=== PATIENT | male | born 1960 | race Two or more races ===

== ENCOUNTER 2022-11-06 06:18 | Inpatient (IN) | payer BC ==
[2022-11-06] VITALS (14 sets, daily range): BP systolic 118–130; BP diastolic 49–82
[~2022-11-06] VITALS: Ht 177.8 cm; Wt 141.6 kg
[2022-11-06] MEDS: ceFAZolin 1GM/50ML 50 ML IV SCH ×2 (03:15→19:15)
[~2022-11-06 06:18] MED LIST: EMPA1TAB PO; GABA-1250 PO; GLYB5TAB8 PO; HYDR25TA4 PO; METF-370 PO; OLME20TA53 PO; ROSU10TA16 PO
[2022-11-06] MEDS ORDERED: ceFAZolin 1GM/50ML 100 ML IV ONE (06:37)
[2022-11-06] MEDS ORDERED: SUCCINYLCHOLINE CHLORIDE 20 MG/ML 10ML VIAL IV ONE (07:22)
[2022-11-06] MEDS ORDERED: HYDROmorphone HCL 2 MG/ML VL/or syr ONE (07:34)
[2022-11-06] MEDS ORDERED: fentaNYL CITRATE 100 MCG/2 ML VL ONE (07:34)
[2022-11-06] MEDS ORDERED: MIDAZOLAM HCL 2MG/2ML 2ml VIAL (1mg/ml) ONE (07:34)
[2022-11-06] MEDS ORDERED: PROPOFOL 10 MG/ML 20 ML IV ONE (08:51)
[2022-11-06] MEDS ORDERED: MINERAL OIL TOPICAL 10ml TOP ONE (09:58)
[2022-11-06] MEDS ORDERED: SUGAMMADEX 200mg/2ml Vial (100MG/ML) IV ONE (11:11)
[2022-11-06] MEDS ORDERED: D5W/SOD CHLO 0.9% 1,000 ML IV SCH (11:15)
[2022-11-06] MEDS ORDERED: NITROGLYCERIN 0.4 MG SL TAB SL PRN (11:15)
[2022-11-06] MEDS ORDERED: ONDANSETRON HCL 4 MG/2 ML VIAL IV PRN (11:15)
[2022-11-06] MEDS ORDERED: MORPHINE SULFATE INJ 2 MG/ml SYRG IV PRN ×2 (11:15)
[2022-11-06] MEDS ORDERED: ACETAMINOPHEN 325 MG TAB PO PRN (11:15)
[2022-11-06] MEDS: CYCLOBENZAPRINE HCL 10 MG TAB PO SCH ×2 (14:00→22:36)
[2022-11-06] MEDS: HYDROcodone-ACET 10/325MG TAB PO PRN (15:19)
[2022-11-06] MEDS ORDERED: HYDR25TA5 PO (17:37)
[2022-11-06] MEDS ORDERED: ROSU10TA64 PO (17:37)
[2022-11-06] MEDS ORDERED: EMPA1TAB3 PO (17:37)
[2022-11-06] MEDS ORDERED: OLME1TAB73 PO (17:37)
[2022-11-06] MEDS ORDERED: SILD100T57 PO (17:37)
[2022-11-06] MEDS ORDERED: METF-372 PO (17:37)
[2022-11-06] MEDS ORDERED: GABA-339 PO (17:37)
[2022-11-06] MEDS ORDERED: DEXTROSE (50%) 50ML SYRG IV PRN (18:15)
[2022-11-06] MEDS: ACCU-CHEK COMFORT CURVE STRIP VI SCH (22:00)
[2022-11-06] MEDS: InsuLIN REG 1unit/0.01ml Soln (100units/ml) SC SCH (22:00)
[2022-11-06] MEDS: DOCUSATE SOD 100 MG CAP PO SCH (22:36)
[2022-11-06] MEDS: GABAPENTIN 400 MG CAP PO SCH (22:36)
[2022-11-07] VITALS (18 sets, daily range): BP systolic 103–133; BP diastolic 54–98
[2022-11-07] MEDS: HYDROcodone-ACET 10/325MG TAB PO PRN ×3 (00:35→20:21)
[2022-11-07] MEDS ORDERED: ceFAZolin 1GM/50ML 50 ML IV ONE (02:18)
[2022-11-07 05:48] LABS: Basophils # (auto) 0 10 ^3/uL (0-0.2); Basophils % (auto) 0.1 % (0.0-2.0); Eosinophils # (auto) 0 10 ^3/uL (0-0.8); Eosinophils % (auto) 0.1 % (0.0-7.0); Hematocrit 40.2 % (41.0-53.0); Hemoglobin 13.3 g/dL (13.5-17.5); Lymphocytes % (auto) 7.8 % (10.0-50.0); Mean Corpuscular Volume 84.9 fL (80.0-100.0); Monocytes # (auto) 1.1 10 ^3/uL (0-1.3); Monocytes % (auto) 8.8 % (0.0-12.0); Neutrophils # (auto) 10.7 10 ^3/uL (1.6-8.6); Neutrophils % (auto) 83.2 % (37.0-80.0); Nucleated Red Blood Cells % 0.1 %; Red Blood Cells 4.74 10^6/uL (4.5-5.90); Red Cell Distribution Width 14.1 % (11.8-14.3); White Blood Cell 12.9 10^3/uL (4.4-10.8)
[2022-11-07 06:03] LABS: Potassium 4.4 mmol/L (3.5-5.1)
[2022-11-07] MEDS: ACCU-CHEK COMFORT CURVE STRIP VI SCH ×4 (06:09→22:18)
[2022-11-07] MEDS: CYCLOBENZAPRINE HCL 10 MG TAB PO SCH ×3 (06:09→22:08)
[2022-11-07 06:11] LABS: Albumin 3.4 g/dL (3.4-5.0); BUN/Creatinine Ratio 23.2 (10.0-20.0); Bilirubin, Total 0.5 mg/dL (0.2-1.0); Calcium 7.9 mg/dL (8.5-10.1); Total Protein 6.6 g/dL (6.4-8.2)
[2022-11-07] MEDS: InsuLIN REG 1unit/0.01ml Soln (100units/ml) SC SCH ×4 (06:12→22:16)
[2022-11-07] MEDS: GABAPENTIN 400 MG CAP PO SCH ×2 (09:38→22:08)
[2022-11-07] MEDS: DOCUSATE SOD 100 MG CAP PO SCH ×2 (09:42→22:08)
[2022-11-07] MEDS ORDERED: LOSARTAN POTASSIUM 50 MG TAB PO SCH (10:00)
[2022-11-07] MEDS ORDERED: HCTZ 25 MG TAB PO SCH (10:00)
[2022-11-07] MEDS: EMPAGLIFLOZIN 10 MG TAB PO SCH (13:12)
[2022-11-08] MEDS: HYDROcodone-ACET 10/325MG TAB PO PRN (02:48)
[2022-11-08 03:02] LABS: Urine Bacteria NONE SEEN /hpf (None Seen); Urine Blood Negative /uL (Negative); Urine WBC 1 /hpf (0 - 3)
[2022-11-08 05:00] VITALS: BP 108/75
[2022-11-08] MEDS: CYCLOBENZAPRINE HCL 10 MG TAB PO SCH (06:00)
[2022-11-08] MEDS: ACCU-CHEK COMFORT CURVE STRIP VI SCH ×2 (06:03→11:26)
[2022-11-08] MEDS: InsuLIN REG 1unit/0.01ml Soln (100units/ml) SC SCH ×2 (06:07→11:28)
[2022-11-08 06:22] LABS: Basophils # (auto) 0 10 ^3/uL (0-0.2); Basophils % (auto) 0.4 % (0.0-2.0); Eosinophils # (auto) 0.4 10 ^3/uL (0-0.8); Eosinophils % (auto) 3.4 % (0.0-7.0); Hematocrit 41.6 % (41.0-53.0); Hemoglobin 13.8 g/dL (13.5-17.5); Lymphocytes # (auto) 2.1 10 ^3/uL (0.4-5.4); Lymphocytes % (auto) 19.3 % (10.0-50.0); Mean Corpuscular Hemoglobin 28.3 pg (28.0-32.0); Mean Corpuscular Hgb Conc. 33.2 g/dL (32.0-36.0); Mean Corpuscular Volume 85.3 fL (80.0-100.0); Monocytes # (auto) 1.3 10 ^3/uL (0-1.3); Neutrophils # (auto) 7.1 10 ^3/uL (1.6-8.6); Neutrophils % (auto) 64.9 % (37.0-80.0); Nucleated Red Blood Cells % 0.1 %; Red Blood Cells 4.88 10^6/uL (4.5-5.90); Red Cell Distribution Width 14.3 % (11.8-14.3); White Blood Cell 10.9 10^3/uL (4.4-10.8)
[2022-11-08 06:46] LABS: Calcium 8.7 mg/dL (8.5-10.1); Potassium 4.4 mmol/L (3.5-5.1)
[2022-11-08 09:08] VITALS: BP 90/52
[2022-11-08] MEDS: DOCUSATE SOD 100 MG CAP PO SCH (09:44)
[2022-11-08] MEDS: EMPAGLIFLOZIN 10 MG TAB PO SCH (09:44)
[2022-11-08] MEDS: GABAPENTIN 400 MG CAP PO SCH (09:44)
[2022-11-08 12:37] VITALS: BP 107/72
[2022-11-08 14:19] VITALS: BP 96/63
== END 2022-11-08 15:00 | disposition home health service (06) | DRG 460 ==
LOC: SUR 06:18 → TELE 11:21 → DOU IN ICU 13:35 → TELE-WESTW 11-07 16:11
PROVIDERS: ADMIT Orthopaedic Surgery; ATTEND Internal Medicine
PROC: 0SG00AJ Fusion of Lumbar Vertebral Joint with Interbody Fusion Device, Posterior Approach, Anterior Column, Open Approach (ICD-10-PCS; principal; 2022-11-08)
PROC: 01NB0ZZ Release Lumbar Nerve, Open Approach (ICD-10-PCS; 2022-11-08)
PROC: 00NY0ZZ Release Lumbar Spinal Cord, Open Approach (ICD-10-PCS; 2022-11-08)
PROC: 4A11X4G Monitoring of Peripheral Nervous Electrical Activity, Intraoperative, External Approach (ICD-10-PCS; 2022-11-08)
DX: M48.062 Spinal stenosis, lumbar region with neurogenic claudication (principal); Z68.41 Body mass index [BMI] 40.0-44.9, adult; E11.9 Type 2 diabetes mellitus without complications; E66.01 Morbid (severe) obesity due to excess calories; E78.5 Hyperlipidemia, unspecified; I10 Essential (primary) hypertension; M51.36 Other intervertebral disc degeneration, lumbar region
CPT/HCPCS: 36415; 72100; 76000; 80048; 80053; 81001; 82962; 83036; 85025; 86850; 86900; 86901; 87081; 97110; 97116; 97163; 97530; G0378; J0330; J0690; J1815; J2250; J2704